=== PATIENT | male | born 1945 | race African-American/Black ===

== ENCOUNTER 2021-02-26 01:30 | Inpatient (IN) | payer OTHER ==
[2021-02-26 03:58] LABS: #Eosinphils 0.4 thou/uL (0.0-0.7); #Lymphocytes 1.7 thou/uL (1.20-3.40); #Monocytes 0.5 thou/uL (0.11-0.59); #Neutrophils 2.5 thou/uL (1.40-6.50); %Basophils 0.6 % (0.0-1.0); %Eosinophils 7.6 % (0.0-10.0); %Lymphocytes 33.7 % (21.0-51.0); %Monocytes 9.5 % (0.0-10.0); %Neutrophils 48.7 % (42.0-75.0); Hemoglobin 8.4 g/dL (14.0-18.0); Mean Corpuscular HGB CONC 32.6 g/dL (32.0-36.0); Mean Corpuscular Hemoglobin 31.8 pg (27.0-31.0); Mean Corpuscular Volume 97.6 fL (78.0-98.0); Mean Platelet Volume 7.3 fL (7.4-10.4); Platelet Count 245 thou/uL (130-400); RBC Distribution Width 14.7 % (11.5-14.5); Red Blood Cell (RBC) Count 2.63 mill/uL (4.70-6.10); White Blood Cell (WBC) Count 5.1 thou/uL (4.8-10.8)
[2021-02-26] MEDS ORDERED: HYDROcodone/Acetaminophen 7.5/325 mg Tablet PO PRN (03:59)
[2021-02-26] MEDS ORDERED: Bisacodyl 5 MG TAB PO PRN (03:59)
[2021-02-26] MEDS ORDERED: Ondansetron PF 4 MG/2 ML Vial IVP PRN (03:59)
[2021-02-26] MEDS ORDERED: Acetaminophen 325 MG TAB PO PRN (03:59)
[2021-02-26] MEDS ORDERED: hydrALAZINE 20 MG/ML VIAL SLOW IVP PRN (04:01)
[2021-02-26 04:22] LABS: ALT (SGPT) 13 U/L (8-55); AST (SGOT) 14 U/L (5-34); Albumin 3.1 g/dL (3.4-4.8); Alkaline Phosphatase 54 U/L (40-110); Anion Gap 12 mmol/L (10-20); BUN (Urea Nitrogen) 13 mg/dL (8.4-25.7); Bilirubin, Total 0.7 mg/dL (0.2-1.2); Calc. Creatinine Clearance 0 mL/min (70-130); Calcium 8.6 mg/dL (7.8-10.44); Carbon Dioxide 22 mmol/L (23-31); Chloride 108 mmol/L (98-107); Glucose 85 mg/dL (83-110); Potassium 3.7 mmol/L (3.5-5.1); Protein, Total 6.1 g/dL (5.8-8.1); Sodium 138 mmol/L (136-145)
[2021-02-26 05:29] VITALS: BMI 23.7
[2021-02-26] MEDS ORDERED: Morphine 4 MG/ML VIAL SLOW IVP PRN (05:36)
[2021-02-26] MEDS: Vancomycin 1 GM in Premix Bag 1 BAG IVPB SCH (05:56)
[2021-02-26] MEDS: Zinc Sulfate 220 MG CAP PO SCH (08:10)
[2021-02-26] MEDS: Famotidine 20 MG TAB PO SCH ×2 (08:10→22:01)
[2021-02-26 09:10] LABS: INR-International Normal Ratio 1.2; Prothrombin Time 15.8 sec (12.0-14.7)
[2021-02-26] MEDS: hydrALAZINE 25 MG TAB PO SCH ×2 (17:05→22:03)
[2021-02-26 17:39] LABS: #Eosinphils 0.4 thou/uL (0.0-0.7); #Lymphocytes 1.5 thou/uL (1.20-3.40); #Monocytes 0.6 thou/uL (0.11-0.59); #Neutrophils 3.7 thou/uL (1.40-6.50); %Basophils 0.4 % (0.0-1.0); %Eosinophils 6.4 % (0.0-10.0); %Lymphocytes 24.3 % (21.0-51.0); %Monocytes 9.9 % (0.0-10.0); Hemoglobin 8.1 g/dL (14.0-18.0); Mean Corpuscular HGB CONC 34.1 g/dL (32.0-36.0); Mean Corpuscular Hemoglobin 33.4 pg (27.0-31.0); Mean Corpuscular Volume 97.9 fL (78.0-98.0); Mean Platelet Volume 7.4 fL (7.4-10.4); Platelet Count 233 thou/uL (130-400); Red Blood Cell (RBC) Count 2.43 mill/uL (4.70-6.10); White Blood Cell (WBC) Count 6.3 thou/uL (4.8-10.8)
[2021-02-26] MEDS: Brimonidine Tartrate 0.2% Ophth Soln 5 ml Bottle EA EYE SCH (22:01)
[2021-02-26] MEDS: DorzolamidE/Timolol 2%/0.5% Ophth Soln 10 ml Bottle EA EYE SCH (22:01)
[2021-02-26] MEDS: Latanoprost 0.005% Ophth Soln 2.5 ml Bottle EA EYE SCH (22:01)
[2021-02-26] MEDS: Carvedilol 25 MG TAB PO SCH (22:02)
[2021-02-26] MEDS: Docusate 100 MG CAP PO SCH (22:03)
[2021-02-26] MEDS: Simvastatin 10 MG TAB PO SCH (22:04)
[2021-02-27 05:23] LABS: #Eosinphils 0.4 thou/uL (0.0-0.7); #Lymphocytes 1.5 thou/uL (1.20-3.40); #Monocytes 0.6 thou/uL (0.11-0.59); #Neutrophils 3.8 thou/uL (1.40-6.50); %Basophils 0.4 % (0.0-1.0); %Eosinophils 6.9 % (0.0-10.0); %Lymphocytes 23.9 % (21.0-51.0); %Monocytes 8.7 % (0.0-10.0); Hemoglobin 8.1 g/dL (14.0-18.0); Mean Corpuscular HGB CONC 33.6 g/dL (32.0-36.0); Mean Corpuscular Hemoglobin 32.8 pg (27.0-31.0); Mean Corpuscular Volume 97.7 fL (78.0-98.0); Mean Platelet Volume 7.6 fL (7.4-10.4); Platelet Count 237 thou/uL (130-400); RBC Distribution Width 14.5 % (11.5-14.5); Red Blood Cell (RBC) Count 2.47 mill/uL (4.70-6.10); White Blood Cell (WBC) Count 6.3 thou/uL (4.8-10.8)
[2021-02-27 05:44] LABS: Anion Gap 10 mmol/L (10-20); BUN (Urea Nitrogen) 14 mg/dL (8.4-25.7); Calc. Creatinine Clearance 62 mL/min (70-130); Calcium 8.2 mg/dL (7.8-10.44); Carbon Dioxide 24 mmol/L (23-31); Chloride 107 mmol/L (98-107); Glucose 86 mg/dL (83-110); Potassium 3.6 mmol/L (3.5-5.1); Sodium 137 mmol/L (136-145)
[2021-02-27] MEDS: Vancomycin 1 GM in Premix Bag 1 BAG IVPB SCH (06:17)
[2021-02-27] MEDS: Losartan 25 MG TAB PO SCH (08:41)
[2021-02-27] MEDS: hydrALAZINE 25 MG TAB PO SCH ×3 (08:41→20:13)
[2021-02-27] MEDS: Famotidine 20 MG TAB PO SCH ×2 (08:41→20:13)
[2021-02-27] MEDS: Zinc Sulfate 220 MG CAP PO SCH (08:42)
[2021-02-27] MEDS: Ferrous Sulfate 325 MG TAB PO SCH (08:42)
[2021-02-27] MEDS: Carvedilol 25 MG TAB PO SCH ×2 (08:42→20:13)
[2021-02-27] MEDS: Spironolactone 25 MG TAB PO SCH (08:42)
[2021-02-27] MEDS: NIFEdipine XL 60 MG TAB PO SCH (08:42)
[2021-02-27] MEDS: Docusate 100 MG CAP PO SCH ×2 (08:42→20:13)
[2021-02-27] MEDS: Brimonidine Tartrate 0.2% Ophth Soln 5 ml Bottle EA EYE SCH ×2 (08:47→20:12)
[2021-02-27] MEDS: DorzolamidE/Timolol 2%/0.5% Ophth Soln 10 ml Bottle EA EYE SCH ×2 (08:48→20:12)
[2021-02-27] MEDS: HYDROcodone/Acetaminophen 5/325 mg Tablet PO PRN ×2 (18:32→22:27)
[2021-02-27] MEDS: Latanoprost 0.005% Ophth Soln 2.5 ml Bottle EA EYE SCH (20:12)
[2021-02-27] MEDS: Simvastatin 10 MG TAB PO SCH (20:13)
[2021-02-28] MEDS: HYDROcodone/Acetaminophen 5/325 mg Tablet PO PRN ×2 (03:28→08:00)
[2021-02-28 04:34] VITALS: TEMP 97.9
[2021-02-28 05:30] LABS: #Eosinphils 0.5 thou/uL (0.0-0.7); #Lymphocytes 1.5 thou/uL (1.20-3.40); #Monocytes 0.7 thou/uL (0.11-0.59); #Neutrophils 3.5 thou/uL (1.40-6.50); %Basophils 0.6 % (0.0-1.0); %Eosinophils 8.3 % (0.0-10.0); %Lymphocytes 24.6 % (21.0-51.0); %Neutrophils 55.6 % (42.0-75.0); Hemoglobin 8.8 g/dL (14.0-18.0); Mean Corpuscular HGB CONC 32.3 g/dL (32.0-36.0); Mean Corpuscular Hemoglobin 31.4 pg (27.0-31.0); Mean Corpuscular Volume 97.5 fL (78.0-98.0); Mean Platelet Volume 7.4 fL (7.4-10.4); Platelet Count 238 thou/uL (130-400); RBC Distribution Width 15.2 % (11.5-14.5); Red Blood Cell (RBC) Count 2.78 mill/uL (4.70-6.10); White Blood Cell (WBC) Count 6.2 thou/uL (4.8-10.8)
[2021-02-28 05:54] LABS: Anion Gap 11 mmol/L (10-20); BUN (Urea Nitrogen) 12 mg/dL (8.4-25.7); Calc. Creatinine Clearance 65 mL/min (70-130); Calcium 8.2 mg/dL (7.8-10.44); Carbon Dioxide 24 mmol/L (23-31); Chloride 106 mmol/L (98-107); Glucose 99 mg/dL (83-110); Potassium 3.6 mmol/L (3.5-5.1); Sodium 137 mmol/L (136-145)
[2021-02-28] MEDS: Carvedilol 25 MG TAB PO SCH (08:00)
[2021-02-28] MEDS: Ferrous Sulfate 325 MG TAB PO SCH (08:00)
[2021-02-28] MEDS: NIFEdipine XL 60 MG TAB PO SCH (08:00)
[2021-02-28] MEDS: Docusate 100 MG CAP PO SCH (08:00)
[2021-02-28] MEDS: hydrALAZINE 25 MG TAB PO SCH (08:01)
[2021-02-28] MEDS: Losartan 25 MG TAB PO SCH (08:01)
[2021-02-28] MEDS: Famotidine 20 MG TAB PO SCH (08:01)
[2021-02-28] MEDS: Spironolactone 25 MG TAB PO SCH (08:01)
[2021-02-28] MEDS: Zinc Sulfate 220 MG CAP PO SCH (08:01)
[2021-02-28] MEDS: Brimonidine Tartrate 0.2% Ophth Soln 5 ml Bottle EA EYE SCH (08:02)
[2021-02-28] MEDS: DorzolamidE/Timolol 2%/0.5% Ophth Soln 10 ml Bottle EA EYE SCH (08:02)
[2021-02-28 08:08] VITALS: BP 151/89
== END 2021-02-28 11:00 | disposition home or self-care (01) | DRG 158 ==
LOC: ERS 01:30 → SURG A 04:10 → OBSVTOIN 02-27 12:50
PROVIDERS: ADMIT Internal Medicine; ATTEND Internal Medicine
PROC: 30233N1 Transfusion of Nonautologous Red Blood Cells into Peripheral Vein, Percutaneous Approach (ICD-10-PCS; principal; 2021-02-27)
PROC: 0HBLXZZ Excision of Left Lower Leg Skin, External Approach (ICD-10-PCS; 2021-02-27)
PROC: 0HBEXZZ Excision of Left Lower Arm Skin, External Approach (ICD-10-PCS; 2021-02-27)
DX: K05.219 Aggressive periodontitis, localized, unspecified severity (principal); D62 Acute posthemorrhagic anemia; L97.909 Non-pressure chronic ulcer of unspecified part of unspecified lower leg with unspecified severity; K13.79 Other lesions of oral mucosa; Z20.822 Contact with and (suspected) exposure to COVID-19; K02.9 Dental caries, unspecified; K04.6 Periapical abscess with sinus; R58 Hemorrhage, not elsewhere classified; I10 Essential (primary) hypertension; Z79.02 Long term (current) use of antithrombotics/antiplatelets; Z79.82 Long term (current) use of aspirin; Z79.899 Other long term (current) drug therapy
CPT/HCPCS: 36415; 36430; 80048; 80053; 85025; 85610; 85730; 86850; 86900; 86901; 96365; 96366; 99285; G0378; J2270; J3370; P9016